=== PATIENT | female | born 1985 | race Caucasian/White ===

== ENCOUNTER 2017-05-12 06:46 | Emergency (ER) | payer BC ==
[~2017-05-12] VITALS: Ht 162.6 cm; Wt 127.1 kg
[2017-05-12 07:41] LABS: HEMATOCRIT 35.3 % (36.0-46.0); MCHC 33.1 G/DL (30.0-36.0); MCV 84.4 FL (83-99); MEAN PLAT.VOLUME 10.8 uM^3 (9.5-12.4); PLATELET COUNT 316 K/uL (156-360); RBC DIS.WIDTH-SD 36.5 % (39-53); RED BLOOD COUNT 4.18 M/uL (3.80-5.20); WHITE BLOOD COUNT 12.1 K/uL (4.1-10.2)
[2017-05-12 08:07] LABS: ANION GAP 9 MEQ/L (2-14); CHLORIDE 104 MEQ/L (99-109); POTASSIUM 3.4 MEQ/L (3.7-5.4); SAMPLE HEMOLYSIS CHECK 0; SAMPLE ICTERIC CHECK 0; SAMPLE LIPEMIA CHECK 0; SODIUM 140 MEQ/L (136-147)
[2017-05-12 08:12] LABS: GFR ESTIMATE (CALCULATED) > 59 mL/min/; GLUCOSE 95 mg/dL (70-99); UREA NITROGEN (BUN) 11 mg/dL (9-23)
[2017-05-12 08:34] LABS: COLOR RED ((YELLOW))
[2017-05-12 08:37] LABS: QUANTITATIVE HCG 47000.6 MIU/ML
[2017-05-12 08:40] LABS: ADD MIUA? YES; BILIRUBIN NEGATIVE; BLOOD MODERATE; GLUCOSE (STRIP) NEGATIVE; KETONES NEGATIVE; LEUKOCYTES TRACE; NITRITE NEGATIVE; PROTEIN (STRIP) 100; UROBILINOGEN 0.2 MG/DL (0.2-1.0)
[2017-05-12 08:41] LABS: RED BLOOD CELLS TNTC /HPF (0-5); UCUL ADDED? YES
[2017-05-12 11:22] VITALS: BP 138/90
== END 2017-05-12 11:23 | disposition home or self-care (01) ==
LOC: EME 06:46
PROVIDERS: Nurse Practitioner Family
DX: O20.9 Hemorrhage in early pregnancy, unspecified (principal); O43.891 Other placental disorders, first trimester; Z3A.09 9 weeks gestation of pregnancy; Z88.0 Allergy status to penicillin
CPT/HCPCS: 76801; 80048; 81003; 84702; 85027; 86900; 86901; 87077; 87086; 99281; 99285

== ENCOUNTER → 2017-09-27 | Outpatient (CLI) | payer BC, OTHER | END | disposition home or self-care (01) | LOC: CDC 14:33 | DX: R06.02 Shortness of breath (principal) | CPT/HCPCS: 93000 ==

== ENCOUNTER 2017-12-24 11:19 | Inpatient (IN) | payer BC, OTHER ==
[~2017-12-24] VITALS: Ht 162.6 cm; Wt 132.9 kg
[2017-12-24] VITALS (7 sets, daily range): BP systolic 82–124; BP diastolic 45–64
[2017-12-24] MEDS ORDERED: PRENATAL TABLE1 EAC3 PO (12:18)
[2017-12-24 13:05] LABS: BASOPHIL (%) 0.5 % (0-1); BASOPHIL COUNT 0.1 K/uL (0-0.1); EOSINOPHIL COUNT 0.1 K/uL (0-0.3); HEMATOCRIT 35.7 % (36.0-46.0); HEMOGLOBIN 11.7 G/DL (11.9-15.5); IMMATURE GRANULOCYTE (%) 0.4 % (0.0-0.7); LYMPHOCYTE (%) 22.3 % (15-42); LYMPHOCYTE COUNT 2.5 K/uL (1.0-2.8); MCH 26.4 PG (29.0-34.0); MCHC 32.8 G/DL (30.0-36.0); MCV 80.4 FL (83-99); MONOCYTE (%) 5.8 % (3-12); MONOCYTE COUNT 0.6 K/uL (0-0.8); NEUTROPHIL COUNT 7.7 K/uL (1.8-6.4); PLATELET COUNT 315 K/uL (156-360); RBC DIS.WIDTH-SD 36.9 % (39-53); RED BLOOD COUNT 4.44 M/uL (3.80-5.20)
[2017-12-24 13:20] LABS: AMPHETAMINE NEGATIVE (500 ng/mL); BARBITURATES NEGATIVE (200 ng/mL); BENZODIAZEPINES NEGATIVE (150 ng/mL); BUPRENORPHINE NEGATIVE (10 ng/mL); COCAINE NEGATIVE (150 ng/mL); METHADONE NEGATIVE (200 ng/mL); METHAMPHETAMINE NEGATIVE (500 ng/mL); OPIATES (MORPHINE) NEGATIVE (100 ng/mL); OXYCODONE NEGATIVE (100 ng/mL); PHENCYCLIDINE NEGATIVE (25 ng/mL); PROPOXYPHENE NEGATIVE (300 ng/mL); THC CANNABINOIDS NEGATIVE (50 ng/mL); TRICYCLIC ANTIDEPRESSANTS NEGATIVE (300 ng/mL)
[2017-12-24] MEDS ORDERED: MOTRIN800 MG PO (15:27)
[2017-12-24] MEDS ORDERED: PERCOCET 5/31 TABLET PO (15:27)
[2017-12-25 01:25] VITALS: BP 106/52
[2017-12-25 06:05] LABS: BASOPHIL (%) 0.3 % (0-1); EOSINOPHIL (%) 0.9 % (0-5); EOSINOPHIL COUNT 0.1 K/uL (0-0.3); HEMATOCRIT 31.6 % (36.0-46.0); HEMOGLOBIN 10.1 G/DL (11.9-15.5); IMMATURE GRANULOCYTE (%) 0.4 % (0.0-0.7); LYMPHOCYTE (%) 19.3 % (15-42); MCH 26.2 PG (29.0-34.0); MCV 81.9 FL (83-99); MONOCYTE (%) 5.6 % (3-12); MONOCYTE COUNT 0.6 K/uL (0-0.8); NEUTROPHIL (%) 73.5 % (45-76); NEUTROPHIL COUNT 7.4 K/uL (1.8-6.4); PLATELET COUNT 244 K/uL (156-360); RBC DIS.WIDTH-CV 13.2 % (11.8-14.6); RBC DIS.WIDTH-SD 38.5 % (39-53); RED BLOOD COUNT 3.86 M/uL (3.80-5.20); WHITE BLOOD COUNT 10.1 K/uL (4.1-10.2)
[2017-12-25 07:07] VITALS: BP 115/59
[2017-12-25 10:57] VITALS: BP 105/58
[2017-12-25 14:54] VITALS: BP 118/75
[2017-12-25 19:36] VITALS: BP 113/58
[2017-12-25 21:52] VITALS: BP 112/58
[2017-12-26 03:24] VITALS: BP 121/56
[2017-12-26 08:49] VITALS: BP 123/63
[2017-12-26 14:15] VITALS: BP 121/71
[2017-12-27 07:26] VITALS: BP 125/75
== END 2017-12-27 15:15 | disposition home or self-care (01) | DRG 765 ==
LOC: LDRP-OP → 2WEST 11:20 → LDRP-OP 01-15 10:16
PROVIDERS: Advanced Practice Midwife; Obstetrics & Gynecology
PROC: 10D00Z1 Extraction of Products of Conception, Low, Open Approach (ICD-10-PCS; principal; 2017-12-24)
DX: O76 Abnormality in fetal heart rate and rhythm complicating labor and delivery (principal); O41.03X0 Oligohydramnios, third trimester, not applicable or unspecified; O48.0 Post-term pregnancy; Z3A.41 41 weeks gestation of pregnancy; Z37.0 Single live birth
CPT/HCPCS: 85025; 86850; 86900; 86901; J0690; J1650; J2274; J2405; J2590; J3010; J7120